=== PATIENT | female | born 1950 | race Caucasian/White ===

== ENCOUNTER 2018-10-27 10:34 | Emergency (ER) | payer MEDICARE, OTHER ==
--- NOTE | 2018-10-27 10:53 | EDM.PDOC ---
ED HPI GENERAL MEDICAL PROBLEM - General Stated Complaint: POSSIBLE BLEEDING ULCER Time Seen by Provider: 10/27/18 10:53 - History of Present Illness INITIAL COMMENTS - FREE TEXT/NARRATIVE: The patient did spit up some blood. She has never had a colonoscopy before. She is scared of the colonoscopy. She has had guaiac stool cards that have all been negative she says. She was recently diagnosed with a prolapsed uterus. Consult was given. The patient comes in today after having spit up the bright red blood and also has epigastric pain. She does have a slightly high leukocytosis and she has low potassium. We did give her a fluid bolus and replaced her potassium. Her a injection of Toradol. Also gave her Zofran and Reglan. I also talked to her primary doctor Dr. Jung at about 145 and she agreed with the gastric cocktail and the Protonix. I will keep her on the Protonix. I will have her have a blood draw prior to seeing her doctor. This is to make sure that her potassium is still adequate. She may need supplementation. She may also need supplementation of magnesium. I will have her avoid NSAIDs while she has spitting up blood. Her hemoglobin is adequate. She does have some thickening of the lower intestines and she may need a colonoscopy. Onset: Today Duration: Intermittent Location: Reports: Other (Epigastric) Quality: Reports: Ache, Dull Severity: Moderate Context: Denies: Sick Contact, Trauma Associated Symptoms: Reports: Loss of Appetite, Nausea/Vomiting Abdominal Pain Score (Numeric/FACES): 6 - Related Data Allergies Allergy/AdvReac Type Severity Reaction Status Date / Time No Known Allergies Allergy Verified 10/27/18 11:08 Home Meds: Home Meds Calcium Carbonate/Vitamin D3 [Calcium 500 + Vit D Caplet] 1 each PO DAILY [History] Citalopram Hydrobromide [Celexa] 60 mg PO DAILY 01/06/14 [History] [place]-3 Fatty Acids [[place]-3] 1,000 mg PO DAILY 01/06/14 [History] amLODIPine [Norvasc] 5 mg PO DAILY 01/06/14 [History] buPROPion HCl [Wellbutrin SR] 150 mg PO BID 01/06/14 [History] hydroCHLOROthiazide [Hydrochlorothiazide] 50 mg PO DAILY 01/06/14 [History] Aspirin 81 mg PO DAILY 10/27/18 [History] Ciclopirox 1 applic TOP BEDTIME 10/27/18 [History] Meloxicam 15 mg PO DAILY 10/27/18 [History] Multivitamin with Minerals [Multiple Vitamin] 1 tab PO DAILY 10/27/18 [History] Pantoprazole Sodium [Protonix] 40 mg PO DAILY #10 tablet. 10/27/18 [Rx] Pregabalin [Lyrica] 50 mg PO BID 10/27/18 [History] Simvastatin 20 mg PO DAILY 10/27/18 [History] ED ROS GENERAL - Review of Systems Review Of Systems: ROS reveals no pertinent complaints other than HPI. ED EXAM, GENERAL - Physical Exam Exam: See Below Exam Limited By: No Limitations General Appearance: Alert, Moderate Distress Respiratory/Chest: No Respiratory Distress, Lungs Clear, Normal Breath Sounds, No Accessory Muscle Use, Chest Non-Tender Cardiovascular: Normal Peripheral Pulses, Regular Rate, Rhythm, No Edema, No Gallop, No JVD, No Murmur, No Rub GI/Abdominal: Other (Abdominal pain. Epigastric pain. Bowel sounds are present. No rebound tenderness.) Course - Vital Signs Last Recorded V/S: Last Vital Signs Temp 36.8 C 10/27/18 10:25 Pulse 104 H 10/27/18 10:25 Resp 16 10/27/18 10:25 BP 135/92 H 10/27/18 10:25 Pulse Ox 100 10/27/18 10:25 - Orders/Labs/Meds Labs: Laboratory Tests 10/27/18 10/27/18 Range/Units 11:10 11:10 WBC 12.3 H (4.0-10.0) x10^3/uL RBC 2.82 L (4.00-5.50) x10^6/uL Hgb 9.5 L (12.0-16.0) g/dL Hct 27.9 L (33.0-47.0) % MCV 98.9 H (78.0-93.0) fL MCH 33.7 H (26.0-32.0) pg MCHC 34.1 (32.0-36.0) g/dL RDW Coeff of Tripp 11.8 (10.0-15.0) % Plt Count 309 (130-400) x10^3/uL Add Manual Diff Yes Neutrophils % (Manual) 86 H (50-80) % Lymphocytes % (Manual) 10 L (25-50) % Monocytes % (Manual) 4 (2-11) % Platelet Estimate Adequate Anisocytosis 1+ slight H Sodium 139 (136-145) mmol/L Potassium 3.1 L (3.5-5.1) mmol/L Chloride 99 (98-107) mmol/L Carbon Dioxide 28 (21-32) mmol/L Anion Gap 15.1 (10-20) mmol/L BUN 68 H D (7-18) mg/dL Creatinine 0.9 (0.55-1.02) mg/dL Est Cr Clr Drug Dosing TNP Estimated GFR (MDRD) > 60 Glucose 126 H (74-106) mg/dL Calcium 9.2 (8.5-10.1) mg/dL Corrected Calcium 10.00 (8.5-10.1) mg/dL Magnesium 1.3 L (1.8-2.4) mg/dL Total Bilirubin 0.3 (0.2-1.0) mg/dL AST 16 (15-37) U/L ALT 18 (14-59) U/L Alkaline Phosphatase 71 (46-116) U/L C-Reactive Protein 4.9 H (<=0.9) mg/dL Total Protein 6.8 (6.4-8.2) g/dL Albumin 3.0 L (3.4-5.0) g/dL Globulin 3.8 Albumin/Globulin Ratio 0.79 Meds: Medications Discontinued Medications Generic Name Dose Route Start Last Admin Trade Name Freq PRN Reason Stop Dose Admin Al Hydroxide/Mg Hydroxide 30 ml 10/27/18 13:38 Gi Cocktail PO 10/27/18 13:39 ONETIME ONE Sodium Chloride 1,000 mls @ 999 mls/hr 10/27/18 11:10 10/27/18 11:10 Normal Saline IV 10/27/18 12:10 999 mls/hr .BOLUS ONE Administration Potassium Chloride 20 meq/ 50 mls @ 50 mls/hr 10/27/18 11:54 10/27/18 12:25 Premix IV 10/27/18 12:53 50 mls/hr ONETIME ONE Administration Iopamidol 100 ml 10/27/18 11:49 10/27/18 11:59 Isovue-300 (61%) IVPUSH 10/27/18 11:50 100 ml ONETIME ONE Administration Ketorolac Tromethamine 30 mg 10/27/18 11:11 10/27/18 11:29 Toradol IVPUSH 10/27/18 11:12 30 mg ONETIME ONE Administration Metoclopramide HCl 10 mg 10/27/18 13:27 10/27/18 13:35 Reglan IVPUSH 10/27/18 13:28 10 mg ONETIME ONE Administration Ondansetron HCl 4 mg 10/27/18 11:10 10/27/18 11:31 Zofran IVPUSH 10/27/18 11:11 4 mg ONETIME ONE Administration Pantoprazole Sodium 40 mg 10/27/18 13:38 Protonix Iv IVPUSH 10/27/18 13:39 ONETIME ONE Departure - Departure Time of Disposition: 13:57 Disposition: Home, Self-Care 01 Condition: Good Clinical Impression: Hiatal hernia, Epigastric abdominal pain - Discharge Information Prescriptions: Pantoprazole Sodium [Protonix] 40 mg PO DAILY #10 tablet. Instructions: Hiatal Hernia Referrals: Tatiana Lizarraga DO [Primary Care Provider] - Forms: ED Department Discharge Additional Instructions: We replaced your potassium. I did talk to Dr. Simpson and she agreed with seeing you in the clinic within the next week. Stay on the protonix. Have your blood drawn prior- basic metabolic panel. Keep a bland diet. Avoid antiinflammatories.
[2018-10-27] MEDS ORDERED: Ondansetron 4 MG/2 ML SDV IVPUSH ONE (11:10)
[2018-10-27] MEDS ORDERED: Sodium Chloride 0.9% 1,000 ML IV ONE (11:10)
[2018-10-27] MEDS ORDERED: Ketorolac 30 MG/ML SDV IVPUSH ONE (11:11)
[2018-10-27 11:36] LABS: CHLORIDE,CL 99 mmol/L (98-107); SODIUM,NA 139 mmol/L (136-145)
[2018-10-27 11:44] LABS: ANION GAP 15.1 mmol/L (10-20)
[2018-10-27] MEDS ORDERED: Iopamidol 612 MG/ML 100 ML Bottle IVPUSH ONE (11:49)
[2018-10-27] MEDS ORDERED: Potassium Chloride Riders 20 MEQ in Premix Bag 1 BAG IV ONE (11:54)
--- NOTE | 2018-10-27 13:16 | CT ---
[id number] CT/CT Abdomen Pelvis W IV EXAM: CT Abdomen Pelvis W IV CLINICAL DATA: ABDOMINAL PAIN COMPARISON: CORRELATION IS MADE WITH THE EXAM OF JANUARY 06, 2014. FINDINGS: There is a large hiatal hernia. There are abnormal vessels at the level of the hiatal hernia. There may be esophageal varices or avascular malformation at the GE junction. Endoscopy may be helpful. The appearance of the stomach and distal esophagus has changed significantly since January 06, 2014. The spleen is not enlarged. There is no obvious cirrhosis. No focal abnormality of the liver is seen. There is a dilated appearance of the proximal left ureter and left renal collecting system. This is most is stable since the last exam. There is an extrarenal pelvis on the left. Multiple vessels are seen draped over the pelvis of the left kidney There is no mass of either kidney. There is no hydronephrosis on the right. The gallbladder is not distended. The pancreas shows no obvious evidence of mass or pancreatitis. The visceral vessels demonstrate normal opacification. The pelvis shows no mass, adenopathy, diverticulitis, or abscess. There does appear to be thickening of the wall of the sigmoid and descending colon. This may represent ischemic colitis, infectious colitis, versus simply incomplete distention. Question is raised if the patient has any diarrhea or lower GI bleeding. The appendix appears normal. The uterus is slightly prominent for age. IMPRESSION: ABNORMAL APPEARANCE OF WALL OF DESCENDING AND SIGMOID COLON. HIATAL HERNIA. ABNORMAL VASCULARITY OF THE GE JUNCTION AND GASTRIC FUNDUS. DILATED EXTRA RENAL PELVIS LEFT KIDNEY AND DILATED PROXIMAL LEFT URETER. CONSIDER SURGICAL CONSULTATION, GI CONSULTATION, AND UROLOGY CONSULTATION. Aureliano Lema MD 10/27/18 [id number] Thank you for allowing us to participate in the care of your patient.
[2018-10-27] MEDS ORDERED: Metoclopramide 10 MG/2 ML SDV IVPUSH ONE (13:27)
[2018-10-27] MEDS ORDERED: Pantoprazole 40 MG Vial IVPUSH ONE (13:38)
[2018-10-27] MEDS ORDERED: GI Cocktail Oral Solution 30 ML PO ONE (13:38)
[2018-10-27] MEDS ORDERED: GI Cocktail Oral Solution 30 ML ONE (14:15)
[2018-10-27 16:17] VITALS: BP 135/68
== END 2018-10-27 14:50 | disposition home or self-care (01) ==
LOC: VM.ED 10:34
DX: K44.9 Diaphragmatic hernia without obstruction or gangrene (principal); Z79.899 Other long term (current) drug therapy
CPT/HCPCS: 74177; 80053; 83735; 85025; 86140; 96361; 96365; 96366; 96375; 99284; 99285; A9270; C9113; J1885; J2405; J2765; J3480; J7030; Q9967; 93005

== ENCOUNTER 2019-01-11 19:54 | Observation (INO) | payer MEDICARE, OTHER ==
[2019-01-11] MEDS ORDERED: Sodium Chloride 0.9% 10 ML Syringe FLUSH PRN (19:56)
[2019-01-11] MEDS ORDERED: Sodium Chloride 0.9% 1,000 ML IV ONE ×2 (19:57→21:16)
[2019-01-11] MEDS ORDERED: Ibuprofen 200 MG Tab PO STA (19:57)
[2019-01-11] MEDS ORDERED: cefTRIAXone 1 GM Vial IVPUSH ONE (20:38)
[2019-01-11] MEDS ORDERED: cefTRIAXone 1 GM Vial ONE (20:44)
[2019-01-11 20:51] LABS: CHLORIDE,CL 92 mmol/L (98-107)
[2019-01-11 20:54] LABS: ANION GAP 16.5 mmol/L (10-20); SODIUM,NA 129 mmol/L (136-145)
--- NOTE | 2019-01-11 21:21 | EDM.PDOC ---
ED HPI GENERAL MEDICAL PROBLEM - General Chief Complaint: Fever Stated Complaint: WEAK FELL TODAY Time Seen by Provider: 01/11/19 19:54 Source of Information: Reports: Patient, EMS, EMS Notes Reviewed - History of Present Illness INITIAL COMMENTS - FREE TEXT/NARRATIVE: Patient comes into the emergency department with complains of weakness and fever. Patient states she started feeling extremely weak around 2:00 this afternoon and has slowly progressed throughout the day. She also states that she has a fever, body aches, and chills. She also states that she's has had urinary incontinence which is new to her she does not have any incontinence issues. She also states that she has had some frequency and hesitancy regarding urination. She denies checking her temperature prior to emergency department arrival. She also denies any nausea or vomiting. Onset: Gradual Quality: Reports: Other Severity: Moderate Improves with: Reports: None Worsens with: Reports: None Context: Reports: Other Associated Symptoms: Reports: Fever/Chills, Loss of Appetite, Malaise, Weakness - Related Data Allergies Allergy/AdvReac Type Severity Reaction Status Date / Time No Known Allergies Allergy Verified 01/11/19 20:48 Home Meds: Home Meds Calcium Carbonate/Vitamin D3 [Calcium 500 + Vit D Caplet] 1 each PO DAILY [History] Citalopram Hydrobromide [Celexa] 60 mg PO DAILY 01/06/14 [History] [place]-3 Fatty Acids [[place]-3] 1,000 mg PO DAILY 01/06/14 [History] amLODIPine [Norvasc] 5 mg PO DAILY 01/06/14 [History] buPROPion HCl [Wellbutrin SR] 150 mg PO BID 01/06/14 [History] hydroCHLOROthiazide [Hydrochlorothiazide] 50 mg PO DAILY 01/06/14 [History] Aspirin 81 mg PO DAILY 10/27/18 [History] Ciclopirox 1 applic TOP BEDTIME 10/27/18 [History] Meloxicam 15 mg PO DAILY 10/27/18 [History] Multivitamin with Minerals [Multiple Vitamin] 1 tab PO DAILY 10/27/18 [History] Pantoprazole Sodium [Protonix] 40 mg PO DAILY #10 tablet. 10/27/18 [Rx] Pregabalin [Lyrica] 50 mg PO BID 10/27/18 [History] Simvastatin 20 mg PO DAILY 10/27/18 [History] Celecoxib [CeleBREX] 1 cap PO BID 01/11/19 [History] Past Medical History Cardiovascular History: Reports: High Cholesterol, Hypertension Neurological History: Reports: CVA Social & Family History - Tobacco Use Smoking Status *Q: Never Smoker ED ROS GENERAL - Review of Systems Review Of Systems: ROS reveals no pertinent complaints other than HPI. Constitutional: Reports: Fever, Chills, Malaise, Weakness, Fatigue, Decreased Appetite HEENT: Reports: No Symptoms Respiratory: Reports: No Symptoms Cardiovascular: Reports: No Symptoms Endocrine: Reports: No Symptoms GI/Abdominal: Reports: No Symptoms : Reports: No Symptoms Musculoskeletal: Reports: No Symptoms Skin: Reports: No Symptoms Neurological: Reports: No Symptoms Psychiatric: Reports: No Symptoms Hematologic/Lymphatic: Reports: No Symptoms Immunologic: Reports: No Symptoms ED EXAM, GENERAL - Physical Exam Exam: See Below Exam Limited By: No Limitations General Appearance: Alert, WD/WN, No Apparent Distress Head: Atraumatic, Normocephalic Neck: Normal Inspection, Supple, Non-Tender, Full Range of Motion Respiratory/Chest: No Respiratory Distress, Lungs Clear, Normal Breath Sounds, No Accessory Muscle Use, Chest Non-Tender Cardiovascular: Normal Peripheral Pulses, Regular Rate, Rhythm, No Edema GI/Abdominal: Normal Bowel Sounds, Soft, Non-Tender, No Distention, No Abnormal Bruit Back Exam: Normal Inspection, Full Range of Motion Extremities: Normal Inspection, Pedal Edema Neurological: Alert, Oriented Psychiatric: Normal Affect, Normal Mood Course - Vital Signs Last Recorded V/S: Last Vital Signs Temp 39.3 C H 01/11/19 21:48 Pulse 89 01/11/19 20:00 Resp 18 01/11/19 20:00 BP 133/56 L 01/11/19 20:00 Pulse Ox 95 01/11/19 20:00 - Orders/Labs/Meds Orders: Active Orders 24 hr Category Date Time Status EKG Documentation Completion [RC] STAT Care 01/11/19 19:56 Active Chest 1V Frontal [CR] Stat Exams 01/11/19 20:25 Taken CULTURE BLOOD [BC] Stat Lab 01/11/19 20:05 Received CULTURE BLOOD [BC] Stat Lab 01/11/19 20:14 Results Sodium Chloride 0.9% [Normal Saline] 1,000 ml Med 01/11/19 21:16 Active IV ONETIME Sodium Chloride 0.9% [Saline Flush] Med 01/11/19 19:56 Active 10 ml FLUSH ASDIRECTED PRN Blood Culture x2 Reflex Set [OM.PC] Stat Oth 01/11/19 19:56 Ordered Peripheral IV Insertion Adult [OM.PC] Stat Ot 01/11/19 19:56 Ordered Medication Orders Sodium Chloride (Normal Saline) 1,000 mls @ 1,000 mls/hr IV ONETIME ONE Stop: 01/11/19 22:15 Last Admin: 01/11/19 21:18 Dose: 1,000 mls/hr Sodium Chloride (Saline Flush) 10 ml FLUSH ASDIRECTED PRN PRN Reason: Keep Vein Open Labs: Laboratory Tests 01/11/19 01/11/19 01/11/19 Range/Units 20:14 20:14 20:14 WBC 13.6 H (4.0-10.0) x10^3/uL RBC 3.25 L (4.00-5.50) x10^6/uL Hgb 9.2 L (12.0-16.0) g/dL Hct 28.4 L (33.0-47.0) % MCV 87.4 D (78.0-93.0) fL MCH 28.3 (26.0-32.0) pg MCHC 32.4 (32.0-36.0) g/dL RDW Coeff of Tripp 14.6 (10.0-15.0) % Plt Count 348 (130-400) x10^3/uL Neut % (Auto) 82.6 H (50.0-80.0) % Lymph % (Auto) 4.8 L (25.0-50.0) % [place] % (Auto) 12.4 H (2.0-11.0) % Eos % (Auto) 0.1 (0.0-4.0) % Baso % (Auto) 0.1 L (0.2-1.2) % PT 11.2 (10.0-12.8) SEC INR 1.0 L (2.0-3.5) Sodium 129 L* D (136-145) mmol/L Potassium 3.5 (3.5-5.1) mmol/L Chloride 92 L (98-107) mmol/L Carbon Dioxide 24 (21-32) mmol/L Anion Gap 16.5 (10-20) mmol/L BUN 18 D (7-18) mg/dL Creatinine 0.9 (0.55-1.02) mg/dL Est Cr Clr Drug Dosing 44.52 mL/min Estimated GFR (MDRD) > 60 Glucose 118 H (74-106) mg/dL Lactic Acid (0.4-2.0) mmol/L Calcium 8.6 (8.5-10.1) mg/dL Corrected Calcium 9.48 (8.5-10.1) mg/dL Total Bilirubin 0.4 (0.2-1.0) mg/dL AST 15 (15-37) U/L ALT 19 (14-59) U/L Alkaline Phosphatase 79 (46-116) U/L Troponin I < 0.017 (<=0.056) ng/mL NT-Pro-B Natriuret Pep 480 H (<=125) pg/mL Total Protein 7.5 (6.4-8.2) g/dL Albumin 2.9 L (3.4-5.0) g/dL Globulin 4.6 Albumin/Globulin Ratio 0.63 Urine Color (YELLOW) Urine Appearance (CLEAR) Urine pH (5.0-8.0) Ur Specific [place] Urine Protein (NEGATIVE) mg/dL Urine Glucose (UA) (NEGATIVE) mg/dL Urine Ketones (NEGATIVE) mg/dL Urine Occult Blood (NEGATIVE) Urine Nitrite (NEGATIVE) Urine Bilirubin (NEGATIVE) Urine Urobilinogen (0.2) EU/dL Ur Leukocyte Esterase (NEGATIVE) Urine RBC (NOT SEEN) /HPF Urine WBC (NOT SEEN) /HPF Ur Squamous Epith Cells (NEGATIVE) /HPF Urine Bacteria (NEGATIVE) /HPF Urine Mucus (NEGATIVE) /LPF 01/11/19 01/11/19 Range/Units 20:14 21:15 WBC (4.0-10.0) x10^3/uL RBC (4.00-5.50) x10^6/uL Hgb (12.0-16.0) g/dL Hct (33.0-47.0) % MCV (78.0-93.0) fL MCH (26.0-32.0) pg MCHC (32.0-36.0) g/dL RDW Coeff of Tripp (10.0-15.0) % Plt Count (130-400) x10^3/uL Neut % (Auto) (50.0-80.0) % Lymph % (Auto) (25.0-50.0) % [place] % (Auto) (2.0-11.0) % Eos % (Auto) (0.0-4.0) % Baso % (Auto) (0.2-1.2) % PT (10.0-12.8) SEC INR (2.0-3.5) Sodium (136-145) mmol/L Potassium (3.5-5.1) mmol/L Chloride (98-107) mmol/L Carbon Dioxide (21-32) mmol/L Anion Gap (10-20) mmol/L BUN (7-18) mg/dL Creatinine (0.55-1.02) mg/dL Est Cr Clr Drug Dosing mL/min Estimated GFR (MDRD) Glucose (74-106) mg/dL Lactic Acid 1.6 (0.4-2.0) mmol/L Calcium (8.5-10.1) mg/dL Corrected Calcium (8.5-10.1) mg/dL Total Bilirubin (0.2-1.0) mg/dL AST (15-37) U/L ALT (14-59) U/L Alkaline Phosphatase (46-116) U/L Troponin I (<=0.056) ng/mL NT-Pro-B Natriuret Pep (<=125) pg/mL Total Protein (6.4-8.2) g/dL Albumin (3.4-5.0) g/dL Globulin Albumin/Globulin Ratio Urine Color Yellow (YELLOW) Urine Appearance Cloudy H (CLEAR) Urine pH 7.0 (5.0-8.0) Ur Specific [place] 1.015 Urine Protein Negative (NEGATIVE) mg/dL Urine Glucose (UA) Negative (NEGATIVE) mg/dL Urine Ketones Trace H (NEGATIVE) mg/dL Urine Occult Blood Negative (NEGATIVE) Urine Nitrite Positive H (NEGATIVE) Urine Bilirubin Negative (NEGATIVE) Urine Urobilinogen 0.2 (0.2) EU/dL Ur Leukocyte Esterase Small H (NEGATIVE) Urine RBC 0-5 (NOT SEEN) /HPF Urine WBC 5-10 H (NOT SEEN) /HPF Ur Squamous Epith Cells Rare (NEGATIVE) /HPF Urine Bacteria Moderate H (NEGATIVE) /HPF Urine Mucus Rare H (NEGATIVE) /LPF Meds: Medications Generic Name Dose Route Start Last Admin Trade Name Freq PRN Reason Stop Dose Admin Sodium Chloride 1,000 mls @ 1,000 mls/hr 01/11/19 21:16 01/11/19 21:18 Normal Saline IV 01/11/19 22:15 1,000 mls/hr ONETIME ONE Administration Sodium Chloride 10 ml 01/11/19 19:56 Saline Flush FLUSH ASDIRECTED PRN Keep Vein Open Discontinued Medications Generic Name Dose Route Start Last Admin Trade Name Freq PRN Reason Stop Dose Admin Ceftriaxone Sodium 1 gm 01/11/19 20:38 01/11/19 20:42 Rocephin IVPUSH 01/11/19 20:39 1 gm STAT ONE Administration Ceftriaxone Sodium Confirm 01/11/19 20:44 01/11/19 21:27 Rocephin Administered 01/11/19 20:45 Not Given Dose 1 gm .ROUTE .STK-MED ONE Sodium Chloride 1,000 mls @ 1,000 mls/hr 01/11/19 19:57 01/11/19 20:30 Normal Saline IV 01/11/19 20:56 1,000 mls/hr ONETIME ONE Administration Ibuprofen 600 mg 01/11/19 19:57 01/11/19 20:32 Motrin PO 01/11/19 19:58 600 mg NOW STA Administration - Re-Assessments/Exams Free Text/Narrative Re-Assessment/Exam: 01/11/19 22:33 Pt tolerated the fluids well. Pt fever has come down. She is up with assistance and was able to consume a sandwich without difficulty. Departure - Departure Time of Disposition: 22:20 Disposition: Refer to Observation Condition: Good Clinical Impression: Dehydration, Weakness UTI (urinary tract infection) Qualifiers: Urinary tract infection type: site unspecified Hematuria presence: without hematuria Qualified Code(s): N39.0 - Urinary tract infection, site not specified - Discharge Information *PRESCRIPTION DRUG MONITORING PROGRAM REVIEWED*: Not Applicable *COPY OF PRESCRIPTION DRUG MONITORING REPORT IN PATIENT CHOLO: Not Applicable Forms: ED Department Discharge - Problem List Review Problem List Initiated/Reviewed/Updated: Yes - My Orders Last 24 Hours: My Active Orders 01/11/19 19:56 EKG Documentation Completion [RC] STAT Sodium Chloride 0.9% [Saline Flush] 10 ml FLUSH ASDIRECTED PRN Blood Culture x2 Reflex Set [OM.PC] Stat Peripheral IV Insertion Adult [OM.PC] Stat 01/11/19 20:05 CULTURE BLOOD [BC] Stat 01/11/19 20:14 CULTURE BLOOD [BC] Stat 01/11/19 20:25 Chest 1V Frontal [CR] Stat 01/11/19 21:16 Sodium Chloride 0.9% [Normal Saline] 1,000 ml IV ONETIME - Assessment/Plan Admission H&P: Please use this note as an admission H&P Last 24 Hours: My Active Orders 01/11/19 19:56 EKG Documentation Completion [RC] STAT Sodium Chloride 0.9% [Saline Flush] 10 ml FLUSH ASDIRECTED PRN Blood Culture x2 Reflex Set [OM.PC] Stat Peripheral IV Insertion Adult [OM.PC] Stat 01/11/19 20:05 CULTURE BLOOD [BC] Stat 01/11/19 20:14 CULTURE BLOOD [BC] Stat 01/11/19 20:25 Chest 1V Frontal [CR] Stat 01/11/19 21:16 Sodium Chloride 0.9% [Normal Saline] 1,000 ml IV ONETIME Assessment:: 1. Sepsis alert called 2. fever 3. chills 4. weakness 5. dehydration Plan: 1. labs completed in ER. Results reviewed with the patient 2. X-ray completed in ER. Results reviewed with the patient 3. Rocephin given in ER 4. 2 Liters of Normal saline given for a low sodium level 5. UA collected in ER. results reviewed with the pt. 6. Did discuss with the pt to be admitted for observation over night for rehydration and monitoring of her weakness. Pt is willing to be admitted to observation status for dehydration and weakness. 7. All questions and concerns addressed prior to discharge 1# dehydration -pt will receive IV fluids overnight to help maintain hydration -labs will be redrawn in the am 2# hyponatremia - pt received 2 liters of fluid in the ER due to critical low sodium level. -IV maintenance will be given -labs will be re-drawn in the am 3# weakness -IV maintenance will be given -Assistance of nursing staff with be provided to ensure safety 4# UTI -IV Rocephin was given in the ER. -Bactrim will be ordered to the am
[2019-01-11] MEDS ORDERED: Ibuprofen 200 MG Tab PO PRN (22:44)
[2019-01-11] MEDS: Acetaminophen 325 MG Tab PO PRN (23:25)
[2019-01-11] MEDS: Sodium Chloride 0.9% 1,000 ML IV SCH (23:30)
[2019-01-12] MEDS: Acetaminophen 325 MG Tab PO PRN (05:32)
[2019-01-12] MEDS: Sodium Chloride 0.9% 1,000 ML IV SCH (07:36)
[2019-01-12 07:40] LABS: CHLORIDE,CL 99 mmol/L (98-107); SODIUM,NA 134 mmol/L (136-145)
[2019-01-12 07:43] LABS: ANION GAP 14.1 mmol/L (10-20)
[2019-01-12] MEDS ORDERED: Non-Formulary Medication 1 Each (Multivitamin With Minerals [Multiple Vitamin] 1 TAB) PO SCH (08:00)
[2019-01-12] MEDS ORDERED: Pregabalin 50 MG Cap PO SCH (08:00)
[2019-01-12] MEDS ORDERED: Celecoxib 100 MG Cap PO SCH (08:00)
[2019-01-12] MEDS ORDERED: Non-Formulary Medication 1 Each (Calcium Carbonate/Vitamin D3 [Calcium 500 + Vit D Caplet] PO SCH (08:00)
[2019-01-12] MEDS ORDERED: Non-Formulary Medication 1 Each (Omega-3 Fatty Acids [Omega-3] 1,000 MG) PO SCH (08:00)
[2019-01-12] MEDS ORDERED: BUPROPION HCL 150 MG PO SCH (08:00)
[2019-01-12] MEDS ORDERED: amLODIPine 5 MG Tab PO SCH (08:00)
[2019-01-12] MEDS ORDERED: Simvastatin 20 MG Tab PO SCH (08:00)
[2019-01-12] MEDS ORDERED: Non-Formulary Medication 1 Each (Meloxicam [Meloxicam] 15 MG) PO SCH (08:00)
[2019-01-12] MEDS ORDERED: Aspirin 81 MG Tab.Chew PO SCH (08:00)
[2019-01-12] MEDS ORDERED: Non-Formulary Medication 1 Each (Hydrochlorothiazide [Hydrochlorothiazide] 50 MG) PO SCH (08:00)
[2019-01-12] MEDS ORDERED: CITALOPRAM HYDROBROMIDE 60 MG PO SCH (08:00)
[2019-01-12] MEDS ORDERED: Pantoprazole 40 MG Tab.CR PO SCH (08:00)
[2019-01-12] MEDS ORDERED: Multivitamins with Iron/Calcium/Folic Acid/Minerals Tab PO SCH (08:15)
[2019-01-12] MEDS ORDERED: Calcium Carbonate/Vitamin D3 1250 MG-200 Unit Tab PO SCH (08:15)
[2019-01-12] MEDS ORDERED: Hydrochlorothiazide 25 MG Tab PO SCH (08:15)
[2019-01-12] MEDS ORDERED: Meloxicam 7.5 MG Tab PO SCH (08:15)
[2019-01-12] MEDS ORDERED: Fish Oil/Omega-3 Fatty Acids 1 Gm Cap PO SCH (08:15)
[2019-01-12] MEDS ORDERED: Citalopram 20 MG Tab PO SCH (08:15)
[2019-01-12] MEDS ORDERED: Sulfamethoxazole/Trimethoprim 800-160 MG Tab PO SCH (09:15)
[2019-01-12] MEDS ORDERED: Take Home: Sulfamethoxazole/Trimethoprim 800-160 MG Tab, 2 Tab Pack PO ONE (10:17)
--- NOTE | 2019-01-12 10:24 | PCM.DCSUM1 ---
Discharge Summary - Hospital Course HPI Initial Comments: 1# dehydration -pt will receive IV fluids overnight to help maintain hydration. Pt is drinking fluids well this am and has been up ambulating to the bathroom with out issues. -labs will be redrawn in the am. White count continues to remain elevated. However clinically patient appears to be feeling better, has more energy and is eating without concern. 2# hyponatremia - pt received 2 liters of fluid in the ER due to critical low sodium level. completed -IV maintenance will be given. Completed -labs will be re-drawn in the am. Labs appear better than yesterday and will continue to improve as she drinks more oral fluids 3# weakness -IV maintenance will be given. completed -Assistance of nursing staff with be provided to ensure safety. Pt has been up in the room without concern. she is at her baseline for mobility and would like to go home. 4# UTI -IV Rocephin was given in the ER.- completed -Bactrim will be ordered to the am- completed -A culture was sent results should be available for Sunday appointment when the pt is to be seen in the clinic by her PCP. 1. Activity and diet discussed with the patient 2. Follow up instructions given 3. Education regarding fever and OTC medications were provided 4. Patient is advised to follow up in the Clinic on Sunday with her PCP 5. All questions and concerns addressed prior to discharge. Brief History: Patient was admitted last night for dehydration, weakness, and UTI. Patient received IV fluids and IV abx treatment. Throughout the night she rested well without complaints. She states she feels much better this am and feels strong enough to go home and continue to heal. Diagnosis: Stroke: No - Discharge Data Discharge Date: 01/12/19 Discharge Disposition: Home, Self-Care 01 Condition: Good - Discharge Diagnosis/Problem(s) (1) Dehydration SNOMED Code(s): 26026966 ICD Code: E86.0 - DEHYDRATION Status: Acute Current Visit: Yes (2) UTI (urinary tract infection) SNOMED Code(s): 06710998 ICD Code: N39.0 - URINARY TRACT INFECTION, SITE NOT SPECIFIED Status: Acute Current Visit: Yes Qualifiers: Urinary tract infection type: site unspecified Hematuria presence: without hematuria Qualified Code(s): N39.0 - Urinary tract infection, site not specified - Patient Summary/Data Recommended Follow-up Testing/Procedures: Follow up with PCP on Sunday - Patient Instructions Diet: Heart Healthy Diet Activity: As Tolerated Driving: Do Not Drive Showering/Bathing: May Shower Notify Provider of: Fever Other/Special Instructions: Ensure you are taking OTC medciation as described on the bottle if fever or chills arise. - Discharge Plan *PRESCRIPTION DRUG MONITORING PROGRAM REVIEWED*: Not Applicable *COPY OF PRESCRIPTION DRUG MONITORING REPORT IN PATIENT CHOLO: Not Applicable Prescriptions/Med Rec: Sulfamethoxazole/Trimethoprim [Bactrim Ds Tablet] 1 each PO BID 8 Days #16 tablet Home Medications: Home Meds Calcium Carbonate/Vitamin D3 [Calcium 500 + Vit D Caplet] 1 each PO DAILY [History] Citalopram Hydrobromide [Celexa] 60 mg PO DAILY 01/06/14 [History] [place]-3 Fatty Acids [[place]-3] 1,000 mg PO DAILY 01/06/14 [History] amLODIPine [Norvasc] 5 mg PO DAILY 01/06/14 [History] buPROPion HCl [Wellbutrin SR] 150 mg PO BID 01/06/14 [History] hydroCHLOROthiazide [Hydrochlorothiazide] 50 mg PO DAILY 01/06/14 [History] Aspirin 81 mg PO DAILY 10/27/18 [History] Multivitamin with Minerals [Multiple Vitamin] 1 tab PO DAILY 10/27/18 [History] Pantoprazole Sodium [Protonix] 40 mg PO DAILY #10 tablet. 10/27/18 [Rx] Pregabalin [Lyrica] 50 mg PO BID 10/27/18 [History] Simvastatin 20 mg PO DAILY 10/27/18 [History] Celecoxib [CeleBREX] 1 cap PO BID 01/11/19 [History] Sulfamethoxazole/Trimethoprim [Bactrim Ds Tablet] 1 each PO BID 8 Days #16 tablet 01/12/19 [Rx] Oxygen Therapy Mode: Room Air Patient Handouts: Urinary Tract Infection, Adult, Sulfamethoxazole; Trimethoprim, SMX-TMP tablets, Probiotics Forms: ED Department Discharge Referrals: Tatiana Lizarraga DO [Primary Care Provider] - - Discharge Summary/Plan Comment DC Time >30 min.: No - General Info Date of Service: 01/12/19 Functional Status: Reports: Pain Controlled, Tolerating Diet, Ambulating, Urinating - Review of Systems General: Reports: No Symptoms HEENT: Reports: No Symptoms Pulmonary: Reports: No Symptoms Cardiovascular: Reports: No Symptoms Gastrointestinal: Reports: No Symptoms Genitourinary: Reports: No Symptoms Musculoskeletal: Reports: No Symptoms Skin: Reports: No Symptoms Neurological: Reports: No Symptoms Psychiatric: Reports: No Symptoms - Patient Data Vitals - Most Recent: Last Vital Signs Temp 37.3 C 01/12/19 06:02 Pulse 92 01/12/19 06:00 Resp 18 01/12/19 06:00 BP 179/89 H 01/12/19 07:32 Pulse Ox 97 01/12/19 06:00 Weight - Most Recent: 68.946 kg I&O - Last 24 hours: Intake & Output 01/11/19 01/12/19 01/12/19 22:59 06:59 14:59 Intake Total 100 1142 520 Output Total 1000 Balance 100 142 520 Lab Results - Last 24 hrs: Laboratory Results - last 24 hr 01/11/19 01/11/19 01/11/19 Range/Units 20:14 20:14 20:14 WBC 13.6 H (4.0-10.0) x10^3/uL RBC 3.25 L (4.00-5.50) x10^6/uL Hgb 9.2 L (12.0-16.0) g/dL Hct 28.4 L (33.0-47.0) % MCV 87.4 D (78.0-93.0) fL MCH 28.3 (26.0-32.0) pg MCHC 32.4 (32.0-36.0) g/dL RDW Coeff of Tripp 14.6 (10.0-15.0) % Plt Count 348 (130-400) x10^3/uL Neut % (Auto) 82.6 H (50.0-80.0) % Lymph % (Auto) 4.8 L (25.0-50.0) % [place] % (Auto) 12.4 H (2.0-11.0) % Eos % (Auto) 0.1 (0.0-4.0) % Baso % (Auto) 0.1 L (0.2-1.2) % PT 11.2 (10.0-12.8) SEC INR 1.0 L (2.0-3.5) Sodium 129 L* D (136-145) mmol/L Potassium 3.5 (3.5-5.1) mmol/L Chloride 92 L (98-107) mmol/L Carbon Dioxide 24 (21-32) mmol/L Anion Gap 16.5 (10-20) mmol/L BUN 18 D (7-18) mg/dL Creatinine 0.9 (0.55-1.02) mg/dL Est Cr Clr Drug Dosing 44.52 mL/min Estimated GFR (MDRD) > 60 Glucose 118 H (74-106) mg/dL Lactic Acid (0.4-2.0) mmol/L Calcium 8.6 (8.5-10.1) mg/dL Corrected Calcium 9.48 (8.5-10.1) mg/dL Total Bilirubin 0.4 (0.2-1.0) mg/dL AST 15 (15-37) U/L ALT 19 (14-59) U/L Alkaline Phosphatase 79 (46-116) U/L Troponin I < 0.017 (<=0.056) ng/mL NT-Pro-B Natriuret Pep 480 H (<=125) pg/mL Total Protein 7.5 (6.4-8.2) g/dL Albumin 2.9 L (3.4-5.0) g/dL Globulin 4.6 Albumin/Globulin Ratio 0.63 Urine Color (YELLOW) Urine Appearance (CLEAR) Urine pH (5.0-8.0) Ur Specific [place] Urine Protein (NEGATIVE) mg/dL Urine Glucose (UA) (NEGATIVE) mg/dL Urine Ketones (NEGATIVE) mg/dL Urine Occult Blood (NEGATIVE) Urine Nitrite (NEGATIVE) Urine Bilirubin (NEGATIVE) Urine Urobilinogen (0.2) EU/dL Ur Leukocyte Esterase (NEGATIVE) Urine RBC (NOT SEEN) /HPF Urine WBC (NOT SEEN) /HPF Ur Squamous Epith Cells (NEGATIVE) /HPF Urine Bacteria (NEGATIVE) /HPF Urine Mucus (NEGATIVE) /LPF 01/11/19 01/11/19 01/12/19 Range/Units 20:14 21:15 07:18 WBC 17.0 H (4.0-10.0) x10^3/uL RBC 2.92 L (4.00-5.50) x10^6/uL Hgb 8.3 L (12.0-16.0) g/dL Hct 25.7 L (33.0-47.0) % MCV 88.0 (78.0-93.0) fL MCH 28.4 (26.0-32.0) pg MCHC 32.3 (32.0-36.0) g/dL RDW Coeff of Tripp 14.8 (10.0-15.0) % Plt Count 346 (130-400) x10^3/uL Neut % (Auto) 86.3 H (50.0-80.0) % Lymph % (Auto) 2.8 L (25.0-50.0) % [place] % (Auto) 10.7 (2.0-11.0) % Eos % (Auto) 0.1 (0.0-4.0) % Baso % (Auto) 0.1 L (0.2-1.2) % PT (10.0-12.8) SEC INR (2.0-3.5) Sodium (136-145) mmol/L Potassium (3.5-5.1) mmol/L Chloride (98-107) mmol/L Carbon Dioxide (21-32) mmol/L Anion Gap (10-20) mmol/L BUN (7-18) mg/dL Creatinine (0.55-1.02) mg/dL Est Cr Clr Drug Dosing mL/min Estimated GFR (MDRD) Glucose (74-106) mg/dL Lactic Acid 1.6 (0.4-2.0) mmol/L Calcium (8.5-10.1) mg/dL Corrected Calcium (8.5-10.1) mg/dL Total Bilirubin (0.2-1.0) mg/dL AST (15-37) U/L ALT (14-59) U/L Alkaline Phosphatase (46-116) U/L Troponin I (<=0.056) ng/mL NT-Pro-B Natriuret Pep (<=125) pg/mL Total Protein (6.4-8.2) g/dL Albumin (3.4-5.0) g/dL Globulin Albumin/Globulin Ratio Urine Color Yellow (YELLOW) Urine Appearance Cloudy H (CLEAR) Urine pH 7.0 (5.0-8.0) Ur Specific [place] 1.015 Urine Protein Negative (NEGATIVE) mg/dL Urine Glucose (UA) Negative (NEGATIVE) mg/dL Urine Ketones Trace H (NEGATIVE) mg/dL Urine Occult Blood Negative (NEGATIVE) Urine Nitrite Positive H (NEGATIVE) Urine Bilirubin Negative (NEGATIVE) Urine Urobilinogen 0.2 (0.2) EU/dL Ur Leukocyte Esterase Small H (NEGATIVE) Urine RBC 0-5 (NOT SEEN) /HPF Urine WBC 5-10 H (NOT SEEN) /HPF Ur Squamous Epith Cells Rare (NEGATIVE) /HPF Urine Bacteria Moderate H (NEGATIVE) /HPF Urine Mucus Rare H (NEGATIVE) /LPF 01/12/19 Range/Units 07:18 WBC (4.0-10.0) x10^3/uL RBC (4.00-5.50) x10^6/uL Hgb (12.0-16.0) g/dL Hct (33.0-47.0) % MCV (78.0-93.0) fL MCH (26.0-32.0) pg MCHC (32.0-36.0) g/dL RDW Coeff of Tripp (10.0-15.0) % Plt Count (130-400) x10^3/uL Neut % (Auto) (50.0-80.0) % Lymph % (Auto) (25.0-50.0) % [place] % (Auto) (2.0-11.0) % Eos % (Auto) (0.0-4.0) % Baso % (Auto) (0.2-1.2) % PT (10.0-12.8) SEC INR (2.0-3.5) Sodium 134 L (136-145) mmol/L Potassium 3.1 L (3.5-5.1) mmol/L Chloride 99 (98-107) mmol/L Carbon Dioxide 24 (21-32) mmol/L Anion Gap 14.1 (10-20) mmol/L BUN 15 (7-18) mg/dL Creatinine 0.8 (0.55-1.02) mg/dL Est Cr Clr Drug Dosing 50.08 mL/min Estimated GFR (MDRD) > 60 Glucose 109 H (74-106) mg/dL Lactic Acid (0.4-2.0) mmol/L Calcium 7.9 L (8.5-10.1) mg/dL Corrected Calcium (8.5-10.1) mg/dL Total Bilirubin (0.2-1.0) mg/dL AST (15-37) U/L ALT (14-59) U/L Alkaline Phosphatase (46-116) U/L Troponin I (<=0.056) ng/mL NT-Pro-B Natriuret Pep (<=125) pg/mL Total Protein (6.4-8.2) g/dL Albumin (3.4-5.0) g/dL Globulin Albumin/Globulin Ratio Urine Color (YELLOW) Urine Appearance (CLEAR) Urine pH (5.0-8.0) Ur Specific [place] Urine Protein (NEGATIVE) mg/dL Urine Glucose (UA) (NEGATIVE) mg/dL Urine Ketones (NEGATIVE) mg/dL Urine Occult Blood (NEGATIVE) Urine Nitrite (NEGATIVE) Urine Bilirubin (NEGATIVE) Urine Urobilinogen (0.2) EU/dL Ur Leukocyte Esterase (NEGATIVE) Urine RBC (NOT SEEN) /HPF Urine WBC (NOT SEEN) /HPF Ur Squamous Epith Cells (NEGATIVE) /HPF Urine Bacteria (NEGATIVE) /HPF Urine Mucus (NEGATIVE) /LPF DAVIN Results - Last 24 hrs: Microbiology 01/11/19 20:14 Anaerobic Blood Culture - Final Blood - Venous - Lab Draw Med Orders - Current: Current Medications Acetaminophen (Tylenol) 650 mg PO Q4H PRN PRN Reason: Fever Last Admin: 01/12/19 05:32 Dose: 650 mg Amlodipine Besylate (Norvasc) 5 mg PO DAILY [facility] Last Admin: 01/12/19 07:32 Dose: 5 mg Aspirin (Aspirin) 81 mg PO DAILY [facility] Last Admin: 01/12/19 07:31 Dose: 81 mg Calcium Carbonate (Calcium Carbonate/Vitamin D 1250 Mg-200 Unit) 1 tab PO DAILY [facility] Last Admin: 01/12/19 09:00 Dose: 1 tab Celecoxib (Celebrex) 100 mg PO BID [facility] Last Admin: 01/12/19 08:57 Dose: 100 mg Citalopram Hydrobromide (Celexa) 60 mg PO DAILY [facility] Last Admin: 01/12/19 09:01 Dose: 60 mg Fish Oil (Fish Oil) 1 gm PO DAILY [facility] Last Admin: 01/12/19 09:06 Dose: 1 gm Hydrochlorothiazide (Hydrochlorothiazide) 50 mg PO DAILY [facility] Last Admin: 01/12/19 09:07 Dose: 50 mg Sodium Chloride (Normal Saline) 1,000 mls @ 125 mls/hr IV ASDIRECTED [facility] Last Admin: 01/12/19 07:36 Dose: 125 mls/hr Multivitamins/Minerals (Thera M Plus) 1 tab PO DAILY [facility] Last Admin: 01/12/19 09:21 Dose: 1 tab Non-Formulary Medication (Bupropion Hcl [Wellbutrin Sr]) 150 mg PO BID [facility] Last Admin: 01/12/19 07:32 Dose: 150 mg Pantoprazole Sodium (Protonix) 40 mg PO DAILY [facility] Last Admin: 01/12/19 07:32 Dose: 40 mg Pregabalin (Lyrica) 50 mg PO BID [facility] Last Admin: 01/12/19 07:31 Dose: 50 mg Simvastatin (Zocor) 20 mg PO DAILY [facility] Last Admin: 01/12/19 07:31 Dose: Not Given Sodium Chloride (Saline Flush) 10 ml FLUSH ASDIRECTED PRN PRN Reason: Keep Vein Open Trimethoprim/Sulfamethoxazole (Septra Ds) 1 tab PO BID [facility] Last Admin: 01/12/19 09:29 Dose: 1 tab Trimethoprim/Sulfamethoxazole (Take Home: Sulfameth/Trimet 800-160mg, 2 Pack) 1 packet PO ONETIME ONE Stop: 01/12/19 10:18 Discontinued Medications Ceftriaxone Sodium (Rocephin) 1 gm IVPUSH STAT ONE Stop: 01/11/19 20:39 Last Admin: 01/11/19 20:42 Dose: 1 gm Ceftriaxone Sodium (Rocephin) Confirm Administered Dose 1 gm .ROUTE .STK-MED ONE Stop: 01/11/19 20:45 Last Admin: 01/11/19 21:27 Dose: Not Given Sodium Chloride (Normal Saline) 1,000 mls @ 1,000 mls/hr IV ONETIME ONE Stop: 01/11/19 20:56 Last Admin: 01/11/19 20:30 Dose: 1,000 mls/hr Sodium Chloride (Normal Saline) 1,000 mls @ 1,000 mls/hr IV ONETIME ONE Stop: 01/11/19 22:15 Last Admin: 01/11/19 21:18 Dose: 1,000 mls/hr Ibuprofen (Motrin) 600 mg PO NOW STA Stop: 01/11/19 19:58 Last Admin: 01/11/19 20:32 Dose: 600 mg Ibuprofen (Motrin) 400 mg PO Q4H PRN PRN Reason: Pain/Fever Meloxicam (Mobic) 15 mg PO DAILY [facility] Non-Formulary Medication (Calcium Carbonate/Vitamin D3 [Calcium 500 + Vit D Caplet]) 1 each PO DAILY [facility] Last Admin: 01/12/19 09:42 Dose: Not Given Non-Formulary Medication (Ciclopirox [Ciclopirox]) 1 applic TOP BEDTIME [facility] Non-Formulary Medication (Citalopram Hydrobromide [Celexa]) 60 mg PO DAILY [facility] Last Admin: 01/12/19 09:41 Dose: Not Given Non-Formulary Medication (Hydrochlorothiazide [Hydrochlorothiazide]) 50 mg PO DAILY [facility] Last Admin: 01/12/19 09:41 Dose: Not Given Non-Formulary Medication (Meloxicam [Meloxicam]) 15 mg PO DAILY [facility] Last Admin: 01/12/19 08:09 Dose: Not Given Non-Formulary Medication (Multivitamin With Minerals [Multiple Vitamin]) 1 tab PO DAILY [facility] Last Admin: 01/12/19 07:35 Dose: Not Given Non-Formulary Medication ([place]-3 Fatty Acids [[place]-3]) 1,000 mg PO DAILY [facility] Last Admin: 01/12/19 07:34 Dose: Not Given - Exam Quality Assessment: Reports: Supplemental Oxygen General: Reports: Alert, Oriented HEENT: Reports: Pupils Equal, Pupils Reactive, EOMI, Mucous Membr. Moist/[place] Neck: Reports: Supple Lungs: Reports: Clear to Auscultation, Normal Respiratory Effort Cardiovascular: Reports: Regular Rate, Regular Rhythm GI/Abdominal Exam: Normal Bowel Sounds, Soft, Non-Tender, No Distention, No Abnormal Bruit Back Exam: Reports: Normal Inspection, Full Range of Motion Extremities: Normal Inspection, Normal Range of Motion, Non-Tender, No Pedal Edema, Normal Capillary Refill Skin: Reports: Warm, Dry, Intact Neurological: Reports: No New Focal Deficit Psy/Mental Status: Reports: Alert, Normal Affect, Normal Mood
[2019-01-12 10:33] VITALS: BP 107/66
--- NOTE | 2019-01-12 15:43 | CR ---
[id number] RAD/RAD Chest PA or AP 1V EXAM: RAD Chest PA or AP 1V INDICATION: SEPTIC COMPARISON: None. DISCUSSION: Cardiomediastinal silhouette is normal in size and contour. No infiltrate, effusion, pneumothorax, or edema. Low lung volumes with associated vascular crowding. IMPRESSION: No acute cardiopulmonary abnormality. Polo Jerez DO 01/12/19 1542 Thank you for allowing us to participate in the care of your patient.
[2019-01-12] MEDS ORDERED: Non-Formulary Medication 1 Each (Ciclopirox [Ciclopirox] 1 APPLIC) TOP SCH (20:00)
== END 2019-01-12 11:55 | disposition home or self-care (01) ==
LOC: VM.ED 19:54 → VM.MS 22:33
PROVIDERS: ADMIT Nurse Practitioner; ATTEND Family Medicine
DX: E86.0 Dehydration (principal); N39.0 Urinary tract infection, site not specified; E87.1 Hypo-osmolality and hyponatremia; I10 Essential (primary) hypertension; E78.00 Pure hypercholesterolemia, unspecified; Z79.1 Long term (current) use of non-steroidal anti-inflammatories (NSAID); Z79.82 Long term (current) use of aspirin; Z79.899 Other long term (current) drug therapy
CPT/HCPCS: 36415; 71045; 80048; 80053; 81001; 83605; 83880; 84484; 85025; 85610; 87040; 93005; 96365; 96366; 96375; 99285-25; A9270-GY; J0696; J7030

== ENCOUNTER 2021-02-04 18:24 | Emergency (ER) | payer MEDICARE, OTHER ==
[2021-02-04] MEDS ORDERED: Azithromycin 250 MG Tab PO ONE (18:36)
--- NOTE | 2021-02-04 18:43 | EDM.PDOC ---
ED HPI GENERAL MEDICAL PROBLEM - General Chief Complaint: General Stated Complaint: COUGH AND WEAKNESS Time Seen by Provider: 02/04/21 18:30 Source of Information: Reports: Patient History Limitations: Reports: No Limitations - History of Present Illness INITIAL COMMENTS - FREE TEXT/NARRATIVE: Patient comes into the emergency department with concerns of a cough. Patient states that she did have an appointment earlier this afternoon however she did not make it to the clinic for took her too long to get ready and she missed her appointment. Patient states that she is had this cough now for approximately 2 to 3 days. She states that it has been improving however she still has a cough that is sporadic and more prevalent when she is lying flat. Her son had just come into town 2 days ago and states that he feels that she is more weak. The patient states that she is not any weaker than she normally is. She states that her legs have been causing increased more discomfort and pain at times however she has chronic Lymphedema and swelling of the lower extremities and states that the pain is intermittent specially with the change of the weather. Patient states that she has been eating and drinking her normal amount. She is been ambulatory her normal amount. She denies any fever, chest pain, shortness of breath, dizziness, headache, abdominal pain, nausea vomiting, or genitourinary concerns. Patient's main concern is her congestion she would like something to help with her cough. Onset: Gradual Location: Reports: Chest Quality: Reports: Other Severity: Mild Improves with: Reports: None Worsens with: Reports: None Context: Reports: Other Associated Symptoms: Reports: No Other Symptoms - Related Data Allergies Allergy/AdvReac Type Severity Reaction Status Date / Time No Known Allergies Allergy Verified 01/11/19 20:48 Home Meds: Home Meds Calcium Carbonate/Vitamin D3 [Calcium 500-Vit D3 125 Caplet] 1 each PO DAILY 01/06/14 [History] Citalopram Hydrobromide [Celexa] 60 mg PO DAILY 01/06/14 [History] [place]-3 Fatty Acids [[place]-3] 1,000 mg PO DAILY 01/06/14 [History] amLODIPine [Norvasc] 5 mg PO DAILY 01/06/14 [History] buPROPion HCL [Wellbutrin SR] 150 mg PO BID 01/06/14 [History] hydroCHLOROthiazide [Hydrochlorothiazide] 50 mg PO DAILY 01/06/14 [History] Aspirin 81 mg PO DAILY 10/27/18 [History] Multivitamin with Minerals [Multiple Vitamin] 1 tab PO DAILY 10/27/18 [History] Pantoprazole Sodium [Protonix] 40 mg PO DAILY #10 tablet. 10/27/18 [Rx] Pregabalin [Lyrica] 50 mg PO BID 10/27/18 [History] Simvastatin 20 mg PO DAILY 10/27/18 [History] Celecoxib [CeleBREX] 1 cap PO BID 01/11/19 [History] Sulfamethoxazole/Trimethoprim [Bactrim Ds Tablet] 1 each PO BID 8 Days #16 tablet 01/12/19 [Rx] Azithromycin 250 mg PO DAILY #4 tablet 02/04/21 [Rx] Benzonatate [Tessalon Perle] 100 mg PO TID PRN #15 capsule 02/04/21 [Rx] Past Medical History Cardiovascular History: Reports: High Cholesterol, Hypertension Gastrointestinal History: Reports: Hiatal Hernia, Other (See Below) Other Gastrointestinal History: Colitis Musculoskeletal History: Reports: Back Pain, Chronic, Fibromyalgia, Osteoarthritis Neurological History: Reports: TIA Psychiatric History: Reports: Anxiety - Past Surgical History Neurological Surgical History: Reports: Spinal Fusion Social & Family History - Family History Family Medical History: No Pertinent Family History - Caffeine Use Caffeine Use: Reports: Coffee ED ROS GENERAL - Review of Systems Review Of Systems: See Below Constitutional: Reports: No Symptoms HEENT: Reports: No Symptoms Respiratory: Reports: Cough Cardiovascular: Reports: No Symptoms Endocrine: Reports: No Symptoms GI/Abdominal: Reports: No Symptoms : Reports: No Symptoms Musculoskeletal: Reports: No Symptoms Skin: Reports: No Symptoms Neurological: Reports: No Symptoms Psychiatric: Reports: No Symptoms Immunologic: Reports: No Symptoms ED EXAM, GENERAL - Physical Exam Exam: See Below Exam Limited By: No Limitations General Appearance: Alert, WD/WN, No Apparent Distress Eye Exam: Bilateral Eye: EOMI, PERRL Head: Atraumatic, Normocephalic Neck: Normal Inspection, Supple, Non-Tender Respiratory/Chest: No Respiratory Distress, Lungs Clear, Normal Breath Sounds, No Accessory Muscle Use, Chest Non-Tender. No: Other (cough noted spontaneous with deep breaths) Cardiovascular: Normal Peripheral Pulses, Regular Rate, Rhythm, No Edema Course - Orders/Labs/Meds Meds: Medications Discontinued Medications Generic Name Dose Route Start Last Admin Trade Name Freq PRN Reason Stop Dose Admin Azithromycin 500 mg 02/04/21 18:36 Azithromycin 250 Mg Tab PO 02/04/21 18:37 ONETIME ONE Departure - Departure Time of Disposition: 18:50 Disposition: Home, Self-Care 01 Condition: Good Clinical Impression: Bronchitis - Discharge Information *PRESCRIPTION DRUG MONITORING PROGRAM REVIEWED*: Not Applicable *COPY OF PRESCRIPTION DRUG MONITORING REPORT IN PATIENT COHLO: Not Applicable Instructions: Acute Bronchitis, Adult, [id number], Benzonatate capsules, Azithromycin tablets Forms: ED Department Discharge Additional Instructions: 1. rest 2. increase your water intake 3. Take all antibiotics as prescribed even if feeling better 4. Take a probiotic while on antibiotics to help promote healthy GI motility 5. Activity and diet as tolerated 6. Can use Ibuprofen and tylenol for any fever or discomfort 7. Follow up with your PCP or return if symptoms progress or worsen 8. Education provided to you regarding your illness, probiotics, antibiotic prescribed 9. Call with any questions or concerns - Assessment/Plan Assessment:: 1. bronchitis 2. cough Plan: 1. Azithromycin given in the ER and script sent to the pharmacy 2. Tessalon pearles sent to the pharmacy 6. Patient and nursing staff was updated regarding the plan of care 7. Education provided the patient regarding activity, diet, rest, [id number] medication modalities, and follow-up care was provided 8. Patient and family are agreeable to the above plan of care 9. All questions and concerns were addressed with the patient and family prior to discharge
[2021-02-04 20:50] VITALS: BP 125/78; PULSE 88
== END 2021-02-04 19:00 | disposition home or self-care (01) ==
LOC: VM.ED 18:24
DX: J40 Bronchitis, not specified as acute or chronic (principal); E78.00 Pure hypercholesterolemia, unspecified; I10 Essential (primary) hypertension; Z79.899 Other long term (current) drug therapy
CPT/HCPCS: 99283; A9270-GY

== ENCOUNTER 2022-03-21 22:30 | Emergency (ER) | payer MEDICARE, OTHER ==
[2022-03-21] MEDS: Sodium Chloride 0.9% 10 ML Syringe FLUSH PRN (23:05)
[2022-03-21 23:30] LABS: CHLORIDE,CL 95 mmol/L (98-107); SODIUM,NA 133 mmol/L (136-145)
[2022-03-21 23:31] LABS: ANION GAP 16.3 mmol/L (5-15); ESTIMATED GFR 53 mL/min (>=60)
[2022-03-21 23:33] LABS: PTT,PARTIAL THROMBOPLSTIN TIME 43.1 SEC (20.5-30.9)
[2022-03-21 23:51] VITALS: BP 176/86; PULSE 65
[2022-03-22] MEDS: Sodium Chloride 0.9% 500 ML IV ONE (00:09)
[2022-03-22] MEDS: cefTRIAXone 2 GM Vial IVPUSH ONE (00:41)
== END 2022-03-22 01:00 | disposition home or self-care (01) ==
LOC: VM.ED 22:30
DX: N39.0 Urinary tract infection, site not specified (principal); E78.00 Pure hypercholesterolemia, unspecified; I10 Essential (primary) hypertension; M19.90 Unspecified osteoarthritis, unspecified site; F17.210 Nicotine dependence, cigarettes, uncomplicated; Z86.73 Personal history of transient ischemic attack (TIA), and cerebral infarction without residual deficits; Z79.82 Long term (current) use of aspirin; Z79.899 Other long term (current) drug therapy
CPT/HCPCS: 36415; 80053; 81001; 83605; 83735; 84145; 85025; 85610; 85730; 86140; 87040; 87086; 87088; 87186; 96374; 99284; 99284-25; J0696; J3490; J7030

== ENCOUNTER 2024-06-13 17:00 | Emergency (ER) | payer MEDICARE, OTHER ==
[2024-06-13] MEDS: Sodium Chloride 0.9% 1,000 ML IV ONE (17:14)
[2024-06-13 17:22] LABS: BASOPHILS PERCENT AUTO 0.3 % (0.2-1.2); EOSINOPHILS ABSOLUTE AUTO 0.4 x10^3/uL (0.0-0.5); EOSINOPHILS PERCENT AUTO 2.9 % (0.0-4.0); HEMATOCRIT 30.4 % (33.0-47.0); HEMOGLOBIN 10.2 g/dL (12.0-16.0); IMMATURE GRAN ABSOLUTE AUTO 0.08 x10^3/uL (0.00-0.07); LYMPHOCYTES ABSOLUTE AUTO 1.1 x10^3/uL (1.0-4.8); LYMPHOCYTES PERCENT AUTO 7.9 % (25.0-50.0); MEAN CORPUSCULAR HEMOGLOBIN 31.9 pg (26.0-32.0); MEAN CORPUSCULAR HGB CONC 33.6 g/dL (32.0-36.0); MONOCYTES ABSOLUTE AUTO 0.9 x10^3/uL (0.0-0.8); MONOCYTES PERCENT AUTO 6.1 % (2.0-11.0); NEUTROPHILS ABSOLUTE AUTO 11.8 x10^3/uL (1.8-7.7); NEUTROPHILS PERCENT AUTO 82.2 % (50.0-80.0); PLATELET COUNT,PLT 377 x10^3/uL (130-400); WHITE BLOOD CELL COUNT,WBC 14.4 x10^3/uL (4.0-10.0)
[2024-06-13 17:44] LABS: A/G RATIO 0.72; ALBUMIN 2.8 g/dL (3.4-5.0); ALKALINE PHOSPHATASE 79 U/L (46-116); ASPARTATE AMNIOTRANSFERASE,AST 17 U/L (15-37); BILIRUBIN TOTAL 0.5 mg/dL (0.2-1.0); BLOOD UREA NITROGEN,BUN 27 mg/dL (7-18); CALCIUM 8.7 mg/dL (8.5-10.1); CARBON DIOXIDE,CO2 25 mmol/L (21-32); CHLORIDE,CL 101 mmol/L (98-107); CREATININE 1.8 mg/dL (0.55-1.02); GLUCOSE RANDOM 123 mg/dL (70-99); POTASSIUM,K 3.9 mmol/L (3.5-5.1); PROTEIN TOTAL,TP 6.7 g/dL (6.4-8.2); SODIUM,NA 137 mmol/L (136-145)
[2024-06-13 17:50] LABS: ANION GAP 14.9 mmol/L (5-15); ESTIMATED GFR 29 mL/min (>=60)
[2024-06-13 18:08] LABS: CORONAVIRUS COVID-19 NAA NEGATIVE (NEGATIVE); INFLUENZA A NAA NEGATIVE (NEGATIVE); INFLUENZA B NAA NEGATIVE (NEGATIVE); RESPIRATORY SYNCYTIAL VIR NAA NEGATIVE (NEGATIVE)
[2024-06-13 18:59] VITALS: BP 122/80; PULSE 67
[2024-06-13 19:21] LABS: ALANINE AMINOTRANSFERASE,ALT 23 U/L (14-59)
== END 2024-06-13 18:42 | disposition home or self-care (01) ==
LOC: VM.ED 17:00
DX: R53.1 Weakness (principal); I10 Essential (primary) hypertension; E78.00 Pure hypercholesterolemia, unspecified; Z79.899 Other long term (current) drug therapy; Z79.82 Long term (current) use of aspirin
CPT/HCPCS: 0241U; 36415; 71045; 80053; 80307; 83605; 84484; 85025; 93005; 93010; 96360; 99284; 99285-25; J7030